=== PATIENT | female | born 1940 | race Caucasian/White ===

== ENCOUNTER → 2016-11-07 | Outpatient (CLI) | payer MEDICARE, OTHER | END | disposition home or self-care (01) | LOC: GMAJ 10:24 | PROVIDERS: ATTEND Family Medicine | DX: E03.9 Hypothyroidism, unspecified (principal) ==

== ENCOUNTER → 2016-11-21 | Outpatient (CLI) | payer MEDICARE, OTHER ==
--- NOTE | 2016-11-22 14:08 | US ---
EXAM DESCRIPTION: Abdomen,Complete CLINICAL HISTORY: CONGENITAL LIVER CYST COMPARISON: CT September 30, 2011 FINDINGS: Aorta: Nonaneurysmal. IVC: Visualized portions normal. Ascites: None. Pancreas: Partially obscured by overlying bowel gas but visualized portions normal. Liver: The liver is not enlarged, measuring 15.7 cm in length. There is a 7.8 cm uncomplicated cyst in the left hepatic lobe which appears slightly increased in size from September,. There is a lobulated cystic lesion in the inferior aspect of the right hepatic lobe with a single internal septation measuring up to 5.2 cm diameter, also slightly increased in size from the patient's previous CT. This may present 2 smaller adjacent cysts. No suspicious liver mass. No intrahepatic biliary duct dilation. Blood flow in the portal vein is not well evaluated. Gallbladder/Common Duct: No stones, wall thickening, pericholecystic fluid or common duct dilation. Right Kidney: No stones, hydronephrosis, atrophy or mass. Spleen: No splenomegaly or mass. Left Kidney: No stones, hydronephrosis, atrophy or mass. IMPRESSION: 2 hepatic cysts measuring up to 7.8 cm diameter, slightly increased in size from September,. Electronically signed by: Ron Davila MD 11/22/2016 2:08 PM CDT Workstation: [facility]
== END | disposition home or self-care (01) ==
LOC: US 13:20
PROVIDERS: ATTEND Family Medicine
DX: Q44.6 Cystic disease of liver (principal)

== ENCOUNTER → 2017-05-30 | Outpatient (CLI) | payer MEDICARE, OTHER ==
--- NOTE | 2017-06-01 16:09 | US ---
EXAM DESCRIPTION: Carotid Duplex CLINICAL HISTORY: 77 years, Female, OCCLUSION AND STENOSIS OF LEFT CAROTID ARTERY COMPARISON: None. FINDINGS: RIGHT: Right ICA to CCA ratio is 0.9. No significant atherosclerotic plaque. The common carotid, proximal, mid and distal internal carotid and external carotid arteries are patent without elevated systolic velocities.No end diastolic flow seen in the right CCA. Vertebral artery flow is antegrade. LEFT: ICA/CCA ratio is 1.1. Estimated stenosis at the left carotid bulb is 27%. No significant atherosclerotic plaque. The common carotid, proximal, mid and distal internal carotid and external carotid arteries are patent without elevated systolic velocities. Vertebral artery flow is antegrade. IMPRESSION: No hemodynamically significant stenosis. Antegrade flow in the vertebral arteries. Electronically signed by: Grabiel Bishop 06/01/2017 4:08 PM [facility]
== END | disposition home or self-care (01) ==
LOC: US 11:33
PROVIDERS: ATTEND Family Medicine
DX: I65.22 Occlusion and stenosis of left carotid artery (principal)

== ENCOUNTER → 2017-11-19 | Outpatient (CLI) | payer OTHER | LOC: GMAJ 12:03 | PROVIDERS: ATTEND Family Medicine | DX: E03.9 Hypothyroidism, unspecified (principal) ==

== ENCOUNTER → 2018-04-09 | Outpatient (CLI) | payer OTHER ==
--- NOTE | 2018-04-10 10:28 | US ---
EXAM DESCRIPTION: Breast,Left: Ultrasound CLINICAL HISTORY: 77 yearsFemaleRETRACTED NIPPLE COMPARISON: Digital diagnostic tomosynthesis mammogram bilateral breast on this visit. TECHNIQUE: Transcutaneous scanning of the left breast utilizing bey-scale and Doppler modes. Scanning performed by the button reclaimer and Dr. Dyer. FINDINGS: Scanning of the retroareolar left breast. Mostly fatty echotexture with minimal fibroglandular tissues. Minimally prominent ducts. No distinct solid mass or cyst. No large calcifications or parenchymal edema. No changes in the nipple. No abnormal vascularity. IMPRESSION: 1. Bi-Rads Category 2: Benign. 2. Please refer to bilateral diagnostic digital breast tomosynthesis examination on this visit. The FINDINGS and the FOLLOW-UP plan were reviewed in person with the patient after the examination. Written communication explaining the IMPRESSION and FOLLOW-UP will be mailed to the patient and referring care provider. Electronically signed by: Grabiel Dyer MD 04/10/2018 10:27 AM CDT
--- NOTE | 2018-04-10 10:34 | MAM ---
EXAM DESCRIPTION: 3D Diagnostic, Bilateral: Digital Mammography CLINICAL HISTORY: 77 [id number] inverted left nipple.. COMPARISON: Targeted left breast ultrasound following this examination.. No prior reports available.. TECHNIQUE: Bilateral CC LM MLO projection full-field images, digital mammographic tomosynthesis technique. CAD not utilized. FINDINGS: The breast parenchymal density pattern is: Scattered areas of fibroglandular density. No skin thickening or nipple retraction minimal thickening of the nipple and suggestion of a small mass density in the retroareolar left breast. Bilateral microcalcifications and coarse calcifications are solitary. Bilateral axillary lymph nodes. No new focal, stellate mass or density, focal asymmetry , and no suspicious microcalcifications right breast. ULTRASOUND: Scanning of the retroareolar left breast. Mostly fatty echotexture with minimal fibroglandular tissues. Minimally prominent ducts. No distinct solid mass or cyst. No large calcifications or parenchymal edema. No changes in the nipple. No abnormal vascularity. IMPRESSION: Benign exam. BIRAD CATEGORY: 2 BENIGN FINDINGS. RECOMMENDATIONS: FOLLOW UP: Routine digital bilateral screening, one year interval from March 2018. The FINDINGS and the FOLLOW-UP plan were reviewed in person with the patient after the examination. Written communication explaining the IMPRESSION and FOLLOW-UP will be mailed to the patient and referring care provider. According to the [employer], yearly mammograms are recommended starting at age 40 and continuing as long as a woman is in good health. Any breast change noted on a breast self-exam should be reported promptly to the patient's healthcare provider. Breast MRI is recommended for women with an approximately 20-25% or greater lifetime risk of breast cancer, including women with a strong family history of breast or ovarian cancer and women who have been treated for Hodgkin's disease. A negative mammographic report should not delay tissue diagnosis in patients with significant clinical history or physical findings. Extremely dense breast tissue limits the sensitivity of digital mammography. Electronically signed by: Grabiel Dyer MD 04/10/2018 10:33 AM CDT
== END ==
LOC: MAMMO 11:13
PROVIDERS: ATTEND Nurse Practitioner Family
DX: N64.53 Retraction of nipple (principal)
CPT/HCPCS: 76641; 77066; G0279

== ENCOUNTER → 2018-04-23 | Outpatient (CLI) | payer OTHER | LOC: GMAJ 12:54 | PROVIDERS: ATTEND Family Medicine | DX: E03.9 Hypothyroidism, unspecified (principal) ==

== ENCOUNTER 2018-04-29 05:40 | Day surgery (SDC) | payer OTHER ==
[2018-04-29] MEDS ORDERED: LIDOCAINE 1% 10 ML VIAL INJ ONE (07:00)
[2018-04-29] MEDS ORDERED: PROPOFOL 200 MG/20 ML VIAL IV ONE (07:00)
[2018-04-29] MEDS ORDERED: LACTATED RINGERS 1,000 ML ONE (10:49)
[2018-04-29] MEDS ORDERED: LACTATED RINGERS 1,000 ML BAG IV ONE (13:10)
[2018-04-29 15:33] VITALS: BP 122/72; TEMP 97.1; O2SAT 97
--- NOTE | 2018-04-30 08:36 | OP ---
DATE OF PROCEDURE: 04/29/18 PREPROCEDURE DIAGNOSIS: 1. Colorectal cancer screening. POSTPROCEDURE DIAGNOSIS: 1. Colonic polyp. 2. Medium-sized internal hemorrhoids. 3. Diverticulosis. PROCEDURE: 1. Colonoscopy. SURGEON: Harsh Adams MD COMPLICATIONS: No immediate complications. SEDATION: The patient was sedated via IV propofol by the Anesthesia Department. CONSENT: Prior to the procedure, risks, benefits and alternatives to the therapy were discussed with the patient. The risks included bleeding, infection , perforation and . The patient agreed to the procedure and signed a consent. PREPROCEDURE ANESTHESIA ASSESSMENT: An examination revealed no contraindication to sedation. Airway examination demonstrated a Mallampati class type 2, ASA grade assessment type 2. Throughout the procedure, the patient's blood pressure, pulse and oxygen saturation were monitored continuously. PROCEDURE: The patient was placed in the left lateral decubitus position and a rectal examination was performed. The rectal examination was within normal limits. The Olympus colonoscope was passed in the anus, rectum, traversing the colon to the level of the cecum as identified by the appendiceal orifice. The entirety of the exam was performed with direct visualization. Retroflexion was performed in the rectum. Preparation quality was good. The withdrawal time was greater than 6 minutes. The patient tolerated the procedure well. FINDINGS: 1. An 8-mm flat polyp was seen in the sigmoid colon. This was removed with a cold snare and totally retrieved. 2. Mild diverticulosis was seen in the sigmoid colon. 3. Non-bleeding internal hemorrhoids were seen in retroflexion in the rectum. 4. Normal terminal ileum. RECOMMENDATION: 1. Return the patient home. 2. Resume previous diet. 3. Followup pathology results. 4. Repeat colonoscopy in the subsequent 5 years if evidence of adenomatous tissue in the retrieved polyp. 5. Return to referring physician's office as previously scheduled. 6. Findings were discussed with the patient and the patient's family member. #[id number] [facility]
== END 2018-04-29 15:25 | disposition home or self-care (01) ==
LOC: AMB 05:40
PROVIDERS: ATTEND Internal Medicine Gastroenterology
DX: Z12.11 Encounter for screening for malignant neoplasm of colon (principal); K63.5 Polyp of colon; K57.30 Diverticulosis of large intestine without perforation or abscess without bleeding; K64.8 Other hemorrhoids; I10 Essential (primary) hypertension; E03.9 Hypothyroidism, unspecified; J45.909 Unspecified asthma, uncomplicated; M81.0 Age-related osteoporosis without current pathological fracture; F32.9 Major depressive disorder, single episode, unspecified; Z79.82 Long term (current) use of aspirin; Z79.899 Other long term (current) drug therapy
CPT/HCPCS: 00812; 45385; 88305; J3490; J7120

== ENCOUNTER → 2018-06-17 | Outpatient (CLI) | payer OTHER ==
--- NOTE | 2018-06-17 12:34 | US ---
EXAM DESCRIPTION: Abdomen,Complete: Ultrasound. CLINICAL HISTORY: NEOPLASM OF UNCERTAIN BEHAVIOR OF LIVER COMPARISON: Ultrasound abdomen 11/21/2016. TECHNIQUE: Transabdominal scannin-dimensional and Doppler modes. FINDINGS: Gallbladder: Normal size and echogenicity with no intraluminal stones or sludge. No wall thickening (0.7 mm) and no surrounding fluid. Nontender with transducer pressure. Common bile duct: 3.3 mm is normal caliber. Liver: 7.8 x 5.7 x 8.5 cm cyst with thin church, no echoes, and posterior enhancement features. Long axis is 16.9 cm with normal echogenicity. Additional cysts measure 4.1 x 4.9 x 4.4 cm, and 11 x 10 mm. No intrahepatic biliary dilatation. Normal caliber of the portal vein with hepatopedal flow. Smooth capsule with no ascites. Pancreas: Normal size and echogenicity. Pancreatic duct not dilated.. Abdominal aorta: Normal caliber from the proximal segment to the distal bifurcation. IVC: visualized; normal caliber. Spleen normal echogenicity; long axis measurement is 8.9 cm. Right kidney: 11.1 cm long axis. Normal cortical echogenicity and mid renal thickness. No hydronephrosis or perirenal fluid. Left kidney: 10.8 cm long axis. Normal cortical echogenicity and mid renal thickness. No hydronephrosis or perirenal fluid. IMPRESSION: 1. Simple uncomplicated cyst in the left hepatic lobe measures 8.5 cm compared to 7.8 cm in October 2016. Other cysts are stable. Normal vascularity. Borderline hepatomegaly. Normal vascularity. Smooth capsule with no ascites. 2. Gallbladder, common bile duct, pancreas, spleen, and bilateral kidneys are unremarkable. Normal caliber of the abdominal aorta and proximal IVC. Electronically signed by: Grabiel Dyer MD 06/17/2018 12:33 PM [employer]
== END ==
LOC: US 09:09
PROVIDERS: ATTEND Family Medicine
DX: D37.6 Neoplasm of uncertain behavior of liver, gallbladder and bile ducts (principal); K76.89 Other specified diseases of liver

== ENCOUNTER → 2019-04-07 | Outpatient (CLI) | payer OTHER | LOC: GMAJ 14:11 | PROVIDERS: ATTEND Family Medicine | DX: E03.8 Other specified hypothyroidism (principal); I10 Essential (primary) hypertension ==

== ENCOUNTER → 2019-04-15 | Outpatient (CLI) | payer OTHER ==
--- NOTE | 2019-04-19 09:50 | MAM ---
EXAM DESCRIPTION: 3D Screening BILATERAL : Digital Mammography. CLINICAL HISTORY: 79 years Female SCREEN . No complaints. No personal history of breast cancer. Remote family history of breast cancer. Menarche age 11. Childbirth 21. Hysterectomy 30+ years. HRT less than 5 years ago. Benign left breast biopsy.. Lifetime risk of developing breast cancer (Tyrer-Cuzick model)(%): 2.4. COMPARISON: Bilateral diagnostic digital breast tomosynthesis and targeted left breast ultrasound 09 April 2018. TECHNIQUE: Bilateral CC and MLO projection full-field images, digital tomosynthesis mammographic technique. Bilateral digital 2-D full-field MLO images. CAD not available for tomosynthesis or 2-D images. FINDINGS: The breast parenchymal density pattern is: Scattered areas of fibroglandular density. No skin thickening or nipple retraction. Bilateral vascular calcifications. Bilateral axillary lymph nodes. Solitary microcalcifications bilaterally. Group of anterior benign type calcifications in the right breast. No new focal, stellate mass or density, focal asymmetry , and no suspicious microcalcifications bilaterally. Stable mammograms compared to prior study. IMPRESSION: Benign exam. BIRAD CATEGORY: 2 BENIGN FINDINGS. RECOMMENDATIONS: FOLLOW UP: Routine digital bilateral mammographic screening, one year interval from March 2019. Written communication explaining the IMPRESSION and follow-up, will be mailed to the patient and referring health care provider. According to the [employer], yearly mammograms are recommended starting at age 40 and continuing as long as a woman is in good health. Any breast change noted on a breast self-exam should be reported promptly to the patient's healthcare provider. Breast MRI is recommended for women with an approximately 20-25% or greater lifetime risk of breast cancer, including women with a strong family history of breast or ovarian cancer and women who have been treated for Hodgkin's disease. A negative mammographic report should not delay tissue diagnosis in patients with significant clinical history or physical findings. Extremely dense breast tissue limits the sensitivity of digital mammography. Electronically signed by: Grabiel Dyer MD 04/19/2019 9:48 AM CDT
== END ==
LOC: MAMMO 11:59
PROVIDERS: ATTEND Family Medicine
DX: Z12.31 Encounter for screening mammogram for malignant neoplasm of breast (principal)

== ENCOUNTER → 2019-08-17 | Outpatient (CLI) | payer OTHER | LOC: GMAJ 11:29 | PROVIDERS: ATTEND Family Medicine | DX: E03.9 Hypothyroidism, unspecified (principal); I10 Essential (primary) hypertension ==

== ENCOUNTER → 2020-01-17 | Outpatient (CLI) | payer OTHER ==
--- NOTE | 2020-01-18 15:20 | US ---
EXAM DESCRIPTION: 3D Diagnostic, Right (accession [id number]), Breast,Right (accession [id number]): Ultrasound CLINICAL HISTORY: 79 yearsFemaleUNSPECIFIED LUMP IN RIGHT BREAST . Lateral to the right nipple. Has felt for several years but seems larger. Normal screening examination March 2019. "Feels like gristle" Remote family history of breast cancer. Menarche age 11. Childbirth age unknown. Hysterectomy age 44. Previous HRT. Previous benign cyst aspiration and biopsy left breast. Lifetime risk of developing breast cancer (Tyrer-Cuzick model)(%): 4.3. COMPARISON: Bilateral screening digital breast tomosynthesis March 2019 and March 2018. TECHNIQUE: Right breast LM, CC, and MLO projection full-field images, digital tomosynthesis technique. Right breast 2-D digital full-field images: LM, CC, and MLO projections. CAD available for 2-D images.. Transcutaneous scanning of the right breast utilizing bey-scale and Doppler modes. Scanning performed by the plant operations coordinator and Dr. Dyer. FINDINGS: The breast parenchymal density pattern is: Scattered areas of fibroglandular density. No skin thickening or nipple retraction vascular calcifications. Cluster of benign type calcifications. Solitary microcalcifications and coarse calcifications. No mammographic abnormality at the region of interest lateral to the right nipple. No new focal, stellate mass or density, focal asymmetry , and no suspicious microcalcifications right breast. Stable mammograms compared to prior study, taking into account differences in mammographic technique Ultrasound: Scanning of the right nipple and periareolar soft tissues. Mostly fatty tissue with minimal fibroglandular tissue. Small ducts. No dominant solid mass, no distinct cyst, no fluid collection, no large calcifications. Overlying skin is negative. IMPRESSION: Benign exam. BIRAD CATEGORY: 2 BENIGN FINDINGS. RECOMMENDATIONS: FOLLOW UP: Return to routine digital bilateral mammographic screening, March 2020 Written communication explaining the IMPRESSION and follow-up, will be mailed to the patient and referring health care provider. The FINDINGS and the FOLLOW-UP plan were reviewed in person with the patient after the examination. According to the [employer], yearly mammograms are recommended starting at age 40 and continuing as long as a woman is in good health. Any breast change noted on a breast self-exam should be reported promptly to the patient's healthcare provider. Breast MRI is recommended for women with an approximately 20-25% or greater lifetime risk of breast cancer, including women with a strong family history of breast or ovarian cancer and women who have been treated for Hodgkin's disease. A negative mammographic report should not delay tissue diagnosis in patients with significant clinical history or physical findings. Extremely dense breast tissue limits the sensitivity of digital mammography. Electronically signed by: Grabiel Dyer MD 01/18/2020 3:19 PM CDT
== END ==
LOC: MAMMO 09:21
PROVIDERS: ATTEND Family Medicine
DX: N63.11 Unspecified lump in the right breast, upper outer quadrant (principal)
CPT/HCPCS: 76641; 77065; G0279